=== PATIENT | female | born 1980 | race Two or more races ===

== ENCOUNTER 2016-12-25 17:09 | Emergency (ER) | payer MEDICAID, OTHER ==
[~2016-12-25] VITALS: Ht 157.5 cm; Wt 73.0 kg
[2016-12-25 17:16] VITALS: BP 138/84
[2016-12-25] MEDS ORDERED: KETOROLAC TROMETH 60MG/2ML VIAL IM ONE (21:00)
[2016-12-25] MEDS ORDERED: methylPREDNISolone SOD SUCC 125 MG/2 ML VL IM ONE (21:00)
== END 2016-12-25 22:12 | disposition home or self-care (01) ==
LOC: ER 17:26
DX: R51 Headache (principal); M54.42 Lumbago with sciatica, left side
CPT/HCPCS: 96372; 99284; J1885; J2930

== ENCOUNTER → 2022-05-24 | Emergency (ER) | payer MEDICAID ==
[~2022-05-24] VITALS: Ht 154.9 cm; Wt 68.0 kg
[~2022-05-24] MED LIST: IBUP800T27 PO
[2022-05-24 20:37] VITALS: BP 142/100
== END | disposition left against medical advice (07) ==
LOC: ER 19:16
DX: M25.511 Pain in right shoulder (principal); R51.9 Headache, unspecified; W06.XXXA Fall from bed, initial encounter; Y93.89 Activity, other specified; Y92.89 Other specified places as the place of occurrence of the external cause; Y99.8 Other external cause status
CPT/HCPCS: 73030

== ENCOUNTER 2022-12-14 22:30 | Emergency (ER) | payer MEDICAID ==
[~2022-12-14] VITALS: Ht 157.5 cm; Wt 72.7 kg
[2022-12-15] MEDS ORDERED: ACET-1158 PO (02:56)
[2022-12-15] MEDS ORDERED: AZIT250T9 PO (02:56)
[2022-12-15] MEDS ORDERED: PRED20TA2 PO (02:56)
[2022-12-15 03:30] VITALS: BP 138/74
== END 2022-12-15 03:54 | disposition home or self-care (01) ==
LOC: ER 22:30
DX: J06.9 Acute upper respiratory infection, unspecified (principal); Z20.822 Contact with and (suspected) exposure to COVID-19
CPT/HCPCS: 36415; 71045; 87426; 87804

== ENCOUNTER 2024-05-18 08:42 | Emergency (ER) | payer MEDICAID ==
[~2024-05-18] VITALS: Ht 157.5 cm; Wt 72.8 kg
[~2024-05-18 08:42] MED LIST changes: +ACET500T58 PO; +AZIT-43 PO; +IBUP-1456 PO; -IBUP800T27 PO; +PRED20TA2 PO
[2024-05-18 12:04] LABS: Basophils # (auto) 0 10 ^3/uL (0-0.2); Basophils % (auto) 0.5 % (0.0-2.0); Eosinophils # (auto) 0 10 ^3/uL (0-0.8); Eosinophils % (auto) 0.4 % (0.0-7.0); Hematocrit 41.9 % (36.0-46.0); Hemoglobin 14.6 g/dL (12.2-16.2); Lymphocytes # (auto) 1.9 10 ^3/uL (0.4-5.4); Lymphocytes % (auto) 27.1 % (10.0-50.0); Mean Corpuscular Hemoglobin 30.1 pg (28.0-32.0); Mean Corpuscular Hgb Conc. 34.8 g/dL (32.0-36.0); Mean Corpuscular Volume 86.6 fL (80.0-100.0); Monocytes # (auto) 0.4 10 ^3/uL (0-1.3); Monocytes % (auto) 5.1 % (0.0-12.0); Neutrophils # (auto) 4.8 10 ^3/uL (1.6-8.6); Neutrophils % (auto) 66.9 % (37.0-80.0); Platelet Count (auto) 297 10^3/uL (140-450); Red Blood Cells 4.84 10^6/uL (4.0-5.20); Red Cell Distribution Width 13.2 % (11.8-14.3); White Blood Cell 7.1 10^3/uL (4.4-10.8)
[2024-05-18 12:09] LABS: Chloride 106 mmol/L (98-107); Potassium 3.8 mmol/L (3.5-5.1); Sodium 139 mmol/L (136-145)
[2024-05-18 12:10] LABS: Anion Gap 7 (5-15); Calcium 9.8 mg/dL (8.7-10.4); Carbon Dioxide 26 mmol/L (20-31)
[2024-05-18 12:15] LABS: BUN/Creatinine Ratio 10.3 (10.0-20.0); Blood Urea Nitrogen 8 mg/dL (9-23); Glucose 99 mg/dL (74-106); Lipase 37 U/L (12-53)
[2024-05-18 12:22] LABS: Urine Bacteria None Seen /hpf (None Seen); Urine WBC None Seen /hpf (0 - 5)
[2024-05-18 12:50] LABS: Urine Blood Negative /uL (Negative); Urine Clarity Turbid (Clear); Urine Color Light-Yellow (Yellow); Urine Mucus FEW (None Seen); Urine Protein, UAD Negative (Negative); Urine Specific Gravity 1.023 (1.001-1.035); Urine Urobilinogen Normal (Negative)
[2024-05-18] MEDS: KETOROLAC TROMETH 60MG/2ML VIAL IM ONE (13:09)
[2024-05-18 13:10] VITALS: BP 139/84; PULSE 79; RESP 20; O2SAT 100
[2024-05-18] MEDS: HYDROcodone-ACET 5/325MG TAB PO ONE (14:06)
== END 2024-05-18 14:28 | disposition home or self-care (01) ==
LOC: ER 08:43
DX: M94.0 Chondrocostal junction syndrome [Tietze] (principal); R10.11 Right upper quadrant pain; Z88.0 Allergy status to penicillin; Z88.6 Allergy status to analgesic agent; Z79.899 Other long term (current) drug therapy; Z90.710 Acquired absence of both cervix and uterus
CPT/HCPCS: 36415; 80048; 81001; 83690; 85025; 96372; 99283; J1885

== ENCOUNTER 2024-09-21 08:50 | Inpatient (IN) | payer MEDICAID ==
[~2024-09-21] VITALS: Ht 157.5 cm; Wt 71.0 kg
--- NOTE | 2024-09-21 09:39 | DVH ---
CHEST RADIOGRAPH Indication: chest pain Technique: Single frontal view of the chest was obtained COMPARISON: XY CHEST XRAY 1 VIEW on DOS: 12/14/22 FINDINGS: Lines and Tubes: None Lungs: Mild congestion Pleura: No effusion. No pneumothorax. Cardiomediastinal contours: Unremarkable Bones: Unremarkable IMPRESSION: Mild congestion
[2024-09-21 09:44] LABS: Basophils # (auto) 0 10 ^3/uL (0-0.2); Basophils % (auto) 0.6 % (0.0-2.0); Eosinophils # (auto) 0 10 ^3/uL (0-0.8); Eosinophils % (auto) 0.6 % (0.0-7.0); Hematocrit 43.8 % (36.0-46.0); Hemoglobin 15.2 g/dL (12.2-16.2); Mean Corpuscular Hemoglobin 29.2 pg (28.0-32.0); Mean Corpuscular Hgb Conc. 34.6 g/dL (32.0-36.0); Mean Corpuscular Volume 84.2 fL (80.0-100.0); Monocytes # (auto) 0.4 10 ^3/uL (0-1.3); Monocytes % (auto) 5.7 % (0.0-12.0); Neutrophils # (auto) 4.1 10 ^3/uL (1.6-8.6); Neutrophils % (auto) 63.1 % (37.0-80.0); Nucleated Red Blood Cells % 0.1 %; Platelet Count (auto) 347 10^3/uL (140-450); Red Cell Distribution Width 12.8 % (11.8-14.3); White Blood Cell 6.5 10^3/uL (4.4-10.8)
[2024-09-21 09:46] LABS: Sodium 140 mmol/L (136-145)
[2024-09-21 09:47] LABS: Anion Gap 13 (5-15); Calcium 10.2 mg/dL (8.7-10.4); Carbon Dioxide 20 mmol/L (20-31)
[2024-09-21 09:52] LABS: BUN/Creatinine Ratio 19.8 (10.0-20.0); Blood Urea Nitrogen 20 mg/dL (9-23); Glucose 98 mg/dL (74-106)
[2024-09-21 10:01] LABS: Chloride 107 mmol/L (98-107)
[2024-09-21 10:10] LABS: Urine Bacteria FEW /hpf (None Seen); Urine Blood Negative /uL (Negative); Urine Clarity Turbid (Clear); Urine Color Light-Yellow (Yellow); Urine Protein, UAD TRACE (Negative); Urine Specific Gravity 1.026 (1.001-1.035); Urine Squamous Epithelial Cell MANY /hpf (<5); Urine Urobilinogen Normal (Negative); Urine WBC 4 /HPF (0-5)
--- NOTE | 2024-09-21 10:50 | ED.PDOC ---
History of Present Illness HPI Comments 44F with hypertension presents with 3 days of worsening high blood pressure associated with left-sided chest pain. She reports the chest pain is more of a pressure at a 6/10. It is not exertional in nature and not relieved by anything. She reports going to a clinic and they also prescribed her medication for a urinary tract infection. She reports she was supposed to be treated for H pylori however they never gave her antibiotics. She reports being compliant with all her medications. Chief Complaint: High Blood Pressure Time Seen by MD: 09:07 Primary Care Provider: UNKNOWN Allergies: Coded Allergies: Penicillins (Verified Allergy, Unknown, 05/18/24) Home Meds Active Scripts Prednisone (Prednisone) 20 Mg Tab, 20 MG PO BID for 5 Days, #10 TAB 0 Refills Prov:DYLAN BROWNLEE 12/15/22 Azithromycin (Azithromycin) 250 Mg Tab, 250 MG PO DAILY MDD 500 for 5 Days, #6 TAB 0 Refills 2 TABLETS ORALLY ON DAY ONE, THEN 1 TABLET ORALLY DAILY FOR 4 DAYS Prov:DYLAN BROWNLEE 12/15/22 Acetaminophen (Acetaminophen) 500 Mg Tab, 500 MG PO QIDP, #30 TAB 0 Refills Prov:DYLAN BROWNLEE 12/15/22 Ibuprofen (Ibuprofen) 800 Mg Tab, 1 TAB PO TID, #30 TAB Prov:GIULIA SCOTT DO 05/25/22 Information Source: Patient Mode of Arrival: Ambulatory Past Medical History PAST MEDICAL HISTORY: HTN Surgical History: Hysterectomy 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 A CLASS History: No Pertinent LINEMAN A CLASS History Family History Family History: Unknown Social History Smoker: Non-Smoker Alcohol: Denies ETOH Use Drugs: Denies Drug Use Lives In: Home All Other Systems: Reviewed and Negative Physical Exam General Appearance: Normal HEENT: Pharynx Normal Neck: Normal Inspection Respiratory: No Respiratory Distress Cardiovascular: No Edema Breast Exam: Deferred Gastrointestinal: Non Tender Genitalia: Deferred Pelvic: Deferred Rectal: Deferred Extremities: Normal range of motion Neurologic: No Motor Deficits Cerebellar Function: NOT DONE Reflexes: NOT DONE Skin: Dry, Normal Color, Warm Lymphatic: NOT DONE Was a procedure done? Was a procedure done?: No Differential Dx Considerations may include: Hypertensive emergency, ACS, viral syndrome, musculoskeletal pain, electrolyte abnormality X-Ray, Labs, Meds, VS Vital Signs Date Time Temp Pulse Resp B/P (MAP) Pulse Ox O2 Delivery O2 Flow Rate FiO2 09/21/24 09:24 92 09/21/24 09:13 98.1 102 16 140/100 (113) 100 Lab Test 09/21/24 10:14 09/21/24 09:18 09/21/24 09:16 Range/Units Troponin I High Sensitivity Pending < 3 L </=34 ng/L White Blood Count 6.5 4.4-10.8 10^3/uL Red Blood Count 5.20 4.0-5.20 10^6/uL Hemoglobin 15.2 12.2-16.2 g/dL Hematocrit 43.8 36.0-46.0 % Mean Corpuscular Volume 84.2 80.0-100.0 fL Mean Corpuscular Hemoglobin 29.2 28.0-32.0 pg Mean Corpuscular Hemoglobin Concent 34.6 32.0-36.0 g/dL Red Cell Distribution Width 12.8 11.8-14.3 % Platelet Count 347 140-450 10^3/uL Mean Platelet Volume 7.3 6.9-10.8 fL Neutrophils (%) (Auto) 63.1 37.0-80.0 % Lymphocytes (%) (Auto) 30.0 10.0-50.0 % Monocytes (%) (Auto) 5.7 0.0-12.0 % Eosinophils (%) (Auto) 0.6 0.0-7.0 % Basophils (%) (Auto) 0.6 0.0-2.0 % Neutrophils # (Auto) 4.1 1.6-8.6 10 ^3/uL Lymphocytes # (Auto) 2.0 0.4-5.4 10 ^3/uL Monocytes # (Auto) 0.4 0-1.3 10 ^3/uL Eosinophils # (Auto) 0 0-0.8 10 ^3/uL Basophils # (Auto) 0 0-0.2 10 ^3/uL Nucleated Red Blood Cells 0.1 % Sodium Level 140 136-145 mmol/L Potassium Level 4.0 3.5-5.1 mmol/L Chloride Level 107 98-107 mmol/L Carbon Dioxide Level 20 20-31 mmol/L Anion Gap 13 5-15 Blood Urea Nitrogen 20 9-23 mg/dL Creatinine 1.01 0.550-1.02 mg/dL Glomerular Filtration Rate Calc 71 >90 mL/min BUN/Creatinine Ratio 19.8 10.0-20.0 Serum Glucose 98 74-106 mg/dL Calcium Level 10.2 8.7-10.4 mg/dL Urine Color Light-yellow Yellow Urine Clarity Turbid H Clear Urine pH 7.0 5.0-9.0 Urine Specific [place] 1.026 1.001-1.035 Urine Protein Trace H Negative Urine Ketones Trace Negative Urine Blood Negative Negative /uL Urine Nitrite Negative Negative Urine Bilirubin Negative Negative Urine Urobilinogen Normal Negative mg/dL Urine Leukocyte Esterase Trace Negative /uL Urine RBC 6 0 - 4 /hpf Urine Microscopic WBC 4 0-5 /HPF Urine Squamous Epithelial Cells Many <5 /hpf Urine Bacteria Few H None Seen /hpf Urine Glucose Normal Normal mg/dL Time of 1ST Reevaluation: 10:48 Reevaluation 1ST: Unchanged Patient Education/Counseling: Diagnosis, Treatment Family Education/Counseling: No Family Present Departure 1 Departure Time of Disposition: 10:48 (Patient presented with hypertension and symptoms concerning for hypertensive emergency. Patient is receiving iv blood pressure medications requiring intensive monitoring. Data: 1. I ordered and reviewed the result of at least 3 labs including a CBC, BMP, and Urinalysis. 2. I independently interpreted the following tests: CT Brain: Which appears benign. EKG which is Normal Sinus RhythmRisk:This patient has a high risk of morbidity due to further diagnostic testing or treatment and may suffer from an acute c ardiac disorder. Workup reveals hypertensive emergency and patient should be admitted for further workup. and possible expert consultation. ) Impression: Primary Impression: Hypertensive emergency without congestive heart failure Additional Impression: Acute chest pain Disposition: ADMITTED INPATIENT Admit to: Med Surg Condition: Serious Critical Care Note Critical Care Time?: Yes Critical care comment: Hypertensive emergency Authorized and Performed by: Hitesh Clement MD Total critical care time: Approximately 36 minutes Due to a high probability of clinically significant, life threatening deterioration, the patient required my highest level of preparedness to intervene emergently and I personally spent this critical care time directly and personally managing the patient. This critical care time included obtaining a history; examining the patient; pulse oximetry; ordering and review of studies; arranging urgent treatment with development of a management plan; evaluation of patient's response to treatment; frequent reassessment; and, discussions with other providers. This critical care time was performed to assess and manage the high probability of imminent, life-threatening deterioration that could result in multi-organ failure. It was exclusive of separately billable procedures and treating other patients and teaching time. Please see my other sections and the rest of the note for further information on patient assessment and treatment. Stability Stability form required: No Heart Score Heart Score: Heart Score Response (Comments) Value History Moderate Suspicious 1 EKG Repolarization Disturb 1 Age <45 0 Risk Factors 1 or 2 risk factors 1 Troponin Normal limit 0 Total 3 HITESH CLEMENT MD Sep 21, 2024 10:50
[2024-09-21] MEDS: hydrALAZINE HCL 20 MG/ML VL IV ONE (12:31)
[2024-09-21 12:33] VITALS: PULSE 100; RESP 18; O2SAT 100
[2024-09-21] MEDS: KETOROLAC TROMETH 30 MG/ML 1ML VIAL IV ONE (13:23)
--- NOTE | 2024-09-21 15:36 | ECG ---
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
[2024-09-22] MEDS ORDERED: MORPHINE SULFATE INJ 2 MG/ml SYRG IV PRN (00:30)
[2024-09-22] MEDS ORDERED: hydrALAZINE HCL 20 MG/ML VL IV PRN (00:30)
[2024-09-22] MEDS ORDERED: ONDANSETRON HCL 4 MG/2 ML VIAL IV PRN (00:30)
[2024-09-22] MEDS ORDERED: NITROGLYCERIN 0.4 MG SL TAB SL PRN (00:30)
[2024-09-22] MEDS: amLODIPine BESYLATE 5 MG TAB PO SCH (00:36)
[2024-09-22] MEDS: ACETAMINOPHEN 325 MG TAB PO PRN (00:37)
[2024-09-22] MEDS: cefTRIAXone 1GM/50ML D5W 50 ML IV ONE (00:42)
--- NOTE | 2024-09-22 00:42 | DVHHP2 ---
Admitting Diagnosis: Chest pain, Hypertension History of Present Illness History Source: Patient Exam Limitations: No limitations HPI Mrs. Brittany Mark is a 44 yo female with no reported medical history who presents with 3 days of worsening high blood pressure associated with left- sided chest pain radiating to her left shoulder blade. Patient reports the chest pain is more of a pressure at a 6/10. It is not exertional in nature and not relieved by anything. She reports going to a clinic and they also prescribed her medication for a urinary tract infection. Patient was told to go to the clinic 3 days in a row to monitor her blood pressure. Patient reports she went to 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 Patient denies headaches, dizziness, nausea, vomiting, fevers, chills, dysuria, hematuria, abdominal pain, diarrhea, constipation. Patient admitted for further evaluation. Home Meds Active Scripts Prednisone (Prednisone) 20 Mg Tab, 20 MG PO BID for 5 Days, #10 TAB 0 Refills Prov:DYLAN BROWNLEE 12/15/22 Azithromycin (Azithromycin) 250 Mg Tab, 250 MG PO DAILY MDD 500 for 5 Days, #6 TAB 0 Refills 2 TABLETS ORALLY ON DAY ONE, THEN 1 TABLET ORALLY DAILY FOR 4 DAYS Prov:DYLAN BROWNLEE 12/15/22 Acetaminophen (Acetaminophen) 500 Mg Tab, 500 MG PO QIDP, #30 TAB 0 Refills Prov:DYLAN BROWNLEE 12/15/22 Ibuprofen (Ibuprofen) 800 Mg Tab, 1 TAB PO TID, #30 TAB Prov:GIULIA SCOTT DO 05/25/22 Reported Medications Sulfamethoxazole-Trimethoprim (Bactrim) 1 Tab Tab, 1 TAB PO Q12HR, MG 09/22/24 Past Medical History Cardiac: No pertinent Hx Pulmonary: No pertinent Hx Central Nervous System: No pertinent Hx GI: No pertinent Hx Hemotology/Oncology: No pertinent Hx Hepatobiliary: No pertinent Hx Psychiatric: No pertinent Hx Musculoskeletal: No pertinent Hx Rheumotologic: No pertinent Hx Infectious Disease: No peritnent Hx ENT: No pertinent Hx Renal/: No pertinent Hx Endocrine: No pertinent Hx Dermatology: No pertinent Hx Review of Systems Comments elevated blood pressure Constitutional: No symptom reported Ears, Nose, & Throat: No symptom reported Eyes: No symptom reported Pulmonary/Respiratory: No symptom reported Cardiovascular: Chest Pain (chest pressure radiating to left arm and left shoulder blade.) Gastrointestinal: No symptom reported Genitourinary: No symptom reported Musculoskeletal: No symptom reported Skin: No symptom reported Psychiatric: No symptom reported Endocrine: No symptom reported Hemotologic/Lymphatic: No symptom reported H&P Exam Vital Signs Vital Signs Date Time Temp Pulse Resp B/P (MAP) Pulse Ox O2 Delivery O2 Flow Rate FiO2 09/22/24 00:08 97.6 77 16 137/94 (108) 100 97.6 09/21/24 12:33 Room Air* 0 21 General Appeara: Well developed, Well nourished, Normal Appearance Head Exam: Normal inspection Neck Exam: Normal inspection, Non-tender, Normal alignment Eye Exam: bilateral eye Normal inspection, bilateral eye PERRL, bilateral eye EOMI Ear Exam: bilateral ear Auricle normal Nasal Exam: Normal inspection Mouth: Normal Inspection Pulmonary/Respiratory: Normal inspection, Normal breath sounds, Chest non- tender, Lungs clear Cardiovascular/Chest: Normal inspection, Regular rate, Normal Rhythm Peripheral Pulses: 2+ dorsalis pedis (R), 2+ dorsalis pedis (L), 2+ Radial (R), 2+ Radial (L) Abdominal Exam: Normal bowel sounds, Soft, No tenderness Rectal Exam: Deferred Back Exam: Normal inspection Pelvic Exam: Not done Neuro/Mental St: Alert, Oriented Appearance: Appropriate appearance, Appropriate insight Eye contact/ Speech: Cooperative, Good eye contact, Normal speech Thoughts/Psych: Normal thought pattern Skin Exam: Normal inspection, Normal color, Warm/dry Labs/Xrays Labs Test 09/21/24 10:14 09/21/24 09:18 09/21/24 09:16 Range/Units Troponin I High Sensitivity < 3 L </=34 ng/L Beta HCG, Quantitative 0.2 L 1.5-4.2 mIU/mL White Blood Count 6.5 4.4-10.8 10^3/uL Red Blood Count 5.20 4.0-5.20 10^6/uL Hemoglobin 15.2 12.2-16.2 g/dL Hematocrit 43.8 36.0-46.0 % Mean Corpuscular Volume 84.2 80.0-100.0 fL Mean Corpuscular Hemoglobin 29.2 28.0-32.0 pg Mean Corpuscular Hemoglobin Concent 34.6 32.0-36.0 g/dL Red Cell Distribution Width 12.8 11.8-14.3 % Platelet Count 347 140-450 10^3/uL Mean Platelet Volume 7.3 6.9-10.8 fL Neutrophils (%) (Auto) 63.1 37.0-80.0 % Lymphocytes (%) (Auto) 30.0 10.0-50.0 % Monocytes (%) (Auto) 5.7 0.0-12.0 % Eosinophils (%) (Auto) 0.6 0.0-7.0 % Basophils (%) (Auto) 0.6 0.0-2.0 % Neutrophils # (Auto) 4.1 1.6-8.6 10 ^3/uL Lymphocytes # (Auto) 2.0 0.4-5.4 10 ^3/uL Monocytes # (Auto) 0.4 0-1.3 10 ^3/uL Eosinophils # (Auto) 0 0-0.8 10 ^3/uL Basophils # (Auto) 0 0-0.2 10 ^3/uL Nucleated Red Blood Cells 0.1 % Sodium Level 140 136-145 mmol/L Potassium Level 4.0 3.5-5.1 mmol/L Chloride Level 107 98-107 mmol/L Carbon Dioxide Level 20 20-31 mmol/L Anion Gap 13 5-15 Blood Urea Nitrogen 20 9-23 mg/dL Creatinine 1.01 0.550-1.02 mg/dL Glomerular Filtration Rate Calc 71 >90 mL/min BUN/Creatinine Ratio 19.8 10.0-20.0 Serum Glucose 98 74-106 mg/dL Calcium Level 10.2 8.7-10.4 mg/dL Urine Color Light-yellow Yellow Urine Clarity Turbid H Clear Urine pH 7.0 5.0-9.0 Urine Specific [place] 1.026 1.001-1.035 Urine Protein Trace H Negative Urine Ketones Trace Negative Urine Blood Negative Negative /uL Urine Nitrite Negative Negative Urine Bilirubin Negative Negative Urine Urobilinogen Normal Negative mg/dL Urine Leukocyte Esterase Trace Negative /uL Urine RBC 6 0 - 4 /hpf Urine Microscopic WBC 4 0-5 /HPF Urine Squamous Epithelial Cells Many <5 /hpf Urine Bacteria Few H None Seen /hpf Urine Glucose Normal Normal mg/dL Assessment/Plan Problem List: (1) Acute chest pain (2) Hypertension Plan This is a 44 yo female with no known past medical history who presents with chest pain, and elevated blood pressure x 3 days worsening yesterday. 1. Chest pain rule out ACS 2. Hypertension Plan Admit telemetry Cardiology consultation, serial troponin levels, ASA, Statin GI ppx Pepcid Antihypertensive for optimal blood pressure management Analgesic as needed Discussed all above with patient who verbalizes agreement and understanding of care plan. All questions were answered. Discussed assessment and care plan with supervising MD. Patient's chart is reviewed seen evaluated. Patient is seen evaluated and admit adrián by nurse practitioner this morning. I agree with her evaluation, documentation, assessment and care plan as outlined. Plan discussed with: Patient, Other Code Visit Code Visit Total Time (mins): 45 GEETHA HOWELL Sep 22, 2024 00:42 JIMMY REYNOSO MD Sep 22, 2024 15:07
[2024-09-22 04:26] LABS: HDL Cholesterol 42 mg/dL (40-59)
[2024-09-22 04:40] LABS: Cholesterol 223 mg/dL (< 200); LDL Cholesterol 149 mg/dL (< 100); Triglycerides 309 mg/dL (< 150)
[2024-09-22 08:00] VITALS: BP 117/72; PULSE 75; RESP 18; TEMP 97.7; O2SAT 100
[2024-09-22 09:00] VITALS: BP 129/63; PULSE 89; RESP 28; TEMP 97.7; O2SAT 100
[2024-09-22] MEDS: ASPirin 81 mg TAB PO SCH (09:10)
[2024-09-22] MEDS: FAMOTIDINE 20 MG TAB PO SCH (09:10)
[2024-09-22] MEDS ORDERED: SULF400T11 PO (09:20)
[2024-09-22 10:44] VITALS: BP 130/78; PULSE 80; O2SAT 100
[2024-09-22] MEDS: HYDROcodone-ACET 5/325MG TAB PO PRN (10:47)
--- NOTE | 2024-09-22 11:05 | DVHINCON2 ---
Date Seen: Sep 22, 2024 Referring Physician ESDRAS Romero Reason for Consultation Chest pain History of Present Illness This is a 44-year-old female patient who presents to the emergency room with chief complaint of chest pain. The patient reports that the chest pain began approximately two days ago while she was at work. 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 She describes it as unprovoked, intermittent, sharp in nature, left-sided with radiation to her left upper back. Associated symptoms include dizziness and shortness of breath. Upon emergency room arrival, the patient was given Toradol for pain and reports relief of symptoms. Initial twelve lead electrocardiogram reveals normal sinus rhythm without any significant ST segment changes. Serial troponin levels have been negative. Significant past medical history includes hypertension, dyslipidemia, urinary tract infections, and migraines. Past Medical History Past medical history reviewed. No other significant than mentioned above. Past Surgical History Denies Family History Family history reviewed. Social History Denies the use of tobacco, alcohol or illicit drugs. Allergies: Coded Allergies: Penicillins (Verified Allergy, Unknown, 05/18/24) Home Meds Active Scripts Prednisone (Prednisone) 20 Mg Tab, 20 MG PO BID for 5 Days, #10 TAB 0 Refills Prov:DYLAN BROWNLEE 12/15/22 Azithromycin (Azithromycin) 250 Mg Tab, 250 MG PO DAILY MDD 500 for 5 Days, #6 TAB 0 Refills 2 TABLETS ORALLY ON DAY ONE, THEN 1 TABLET ORALLY DAILY FOR 4 DAYS Prov:DYLAN BROWNLEE 12/15/22 Acetaminophen (Acetaminophen) 500 Mg Tab, 500 MG PO QIDP, #30 TAB 0 Refills Prov:DYLAN BROWNLEE 12/15/22 Ibuprofen (Ibuprofen) 800 Mg Tab, 1 TAB PO TID, #30 TAB Prov:GIULIA SCOTT DO 05/25/22 Reported Medications Sulfamethoxazole-Trimethoprim (Bactrim) 1 Tab Tab, 1 TAB PO Q12HR, MG 09/22/24 Home Meds Home medications reviewed. Current Medications Current Medications Medications (Trade) Dose Ordered Sig/Keshav Route PRN Reason Start Time Stop Time Status Last Admin Nitroglycerin (Ntrostat Sublingual) 0.4 mg Q5MINP PRN SL FOR CHEST PAIN 09/22/24 00:30 Morphine Sulfate 2 mg Q30M PRN IV FOR CHEST PAIN 09/22/24 00:30 Amlodipine Besylate (Norvasc Tablet) 5 mg DAILY PO 09/22/24 00:30 09/22/24 09:10 Hydralazine HCl (Apresoline Injection) 10 mg Q6HPRN PRN IV SBP>160 09/22/24 00:30 Aspirin 81 mg DAILY PO 09/22/24 10:00 09/22/24 09:10 Famotidine (Pepcid Tablet) 20 mg BID PO 09/22/24 10:00 09/22/24 09:10 Acetaminophen (Tylenol Tablet) 650 mg Q6HPRN PRN PO PAIN SCALE 1-3 OR TEMP>100.4 09/22/24 00:30 09/22/24 00:37 Acetaminophen/ Hydrocodone Bitart ([place] 5/325MG Tab) 1 tab Q6HPRN PRN PO PAIN SCALE 1 THRU 6 09/22/24 00:30 09/22/24 10:47 Ondansetron HCl (Zofran) 4 mg Q6HPRN PRN IV NAUSEA / VOMITING 09/22/24 00:30 Review of Systems Constitutional: No symptom reported Ears, Nose, & Throat: No symptom reported Eyes: No symptom reported Neurological: No symptoms reported Pulmonary/Respiratory: No symptoms reported Cardiovascular: Chest pain Gastrointestinal: No symptom reported Genitourinary: No symptom reported Musculoskeletal: No symptom reported Skin: No symptom reported Psychiatric: No symptom reported Endocrine: No symptom reported Hematologic/Lymphatic: No symptom reported Vital Signs Vital Signs Date Time Temp Pulse Resp B/P (MAP) Pulse Ox O2 Delivery O2 Flow Rate FiO2 09/22/24 09:10 133/50 09/22/24 05:12 97.4 83 18 100 97.4 09/21/24 12:33 Room Air* 0 21 Physical Exam General Appearance: Cooperative. Well-developed. Well-nourished. No acute distress. Pulmonary/Respiratory: Clear, bilateral breaths sounds. Cardiovascular/Chest: Regular rate and rhythm. Peripheral Pulses: 2+ Radial (R). 2+ Radial (L). 2+ Pedal (R). 2+ Pedal (L) Abdominal Exam: Normal bowel sounds. Ankle Exam: Negative ankle edema Lower extremities: Negative lower extremity edema Neuro/Mental Status: A/OX4, coherent. Thoughts/Psych: Normal thought pattern. Appropriate mood and affect. Good judgment and insight. Appearance: No acute distress. Skin Exam: Normal inspection. Normal color. Warm and dry. Labs/Diagnostic Data Labs Test 09/22/24 03:26 09/22/24 00:40 09/21/24 10:14 09/21/24 09:18 Range/Units Troponin I High Sensitivity < 3 L </=34 ng/L Triglycerides Level 309 H < 150 mg/dL Cholesterol Level 223 H < 200 mg/dL LDL Cholesterol 149 H < 100 mg/dL HDL Cholesterol 42 40-59 mg/dL B-Type Natriuretic Peptide 8.75 0-100 pg/mL Beta HCG, Quantitative 0.2 L 1.5-4.2 mIU/mL White Blood Count 6.5 4.4-10.8 10^3/uL Red Blood Count 5.20 4.0-5.20 10^6/uL Hemoglobin 15.2 12.2-16.2 g/dL Hematocrit 43.8 36.0-46.0 % Mean Corpuscular Volume 84.2 80.0-100.0 fL Mean Corpuscular Hemoglobin 29.2 28.0-32.0 pg Mean Corpuscular Hemoglobin Concent 34.6 32.0-36.0 g/dL Red Cell Distribution Width 12.8 11.8-14.3 % Platelet Count 347 140-450 10^3/uL Mean Platelet Volume 7.3 6.9-10.8 fL Neutrophils (%) (Auto) 63.1 37.0-80.0 % Lymphocytes (%) (Auto) 30.0 10.0-50.0 % Monocytes (%) (Auto) 5.7 0.0-12.0 % Eosinophils (%) (Auto) 0.6 0.0-7.0 % Basophils (%) (Auto) 0.6 0.0-2.0 % Neutrophils # (Auto) 4.1 1.6-8.6 10 ^3/uL Lymphocytes # (Auto) 2.0 0.4-5.4 10 ^3/uL Monocytes # (Auto) 0.4 0-1.3 10 ^3/uL Eosinophils # (Auto) 0 0-0.8 10 ^3/uL Basophils # (Auto) 0 0-0.2 10 ^3/uL Nucleated Red Blood Cells 0.1 % Sodium Level 140 136-145 mmol/L Potassium Level 4.0 3.5-5.1 mmol/L Chloride Level 107 98-107 mmol/L Carbon Dioxide Level 20 20-31 mmol/L Anion Gap 13 5-15 Blood Urea Nitrogen 20 9-23 mg/dL Creatinine 1.01 0.550-1.02 mg/dL Glomerular Filtration Rate Calc 71 >90 mL/min BUN/Creatinine Ratio 19.8 10.0-20.0 Serum Glucose 98 74-106 mg/dL Calcium Level 10.2 8.7-10.4 mg/dL Test 09/21/24 09:16 Range/Units Urine Color Light-yellow Yellow Urine Clarity Turbid H Clear Urine pH 7.0 5.0-9.0 Urine Specific [place] 1.026 1.001-1.035 Urine Protein Trace H Negative Urine Ketones Trace Negative Urine Blood Negative Negative /uL Urine Nitrite Negative Negative Urine Bilirubin Negative Negative Urine Urobilinogen Normal Negative mg/dL Urine Leukocyte Esterase Trace Negative /uL Urine RBC 6 0 - 4 /hpf Urine Microscopic WBC 4 0-5 /HPF Urine Squamous Epithelial Cells Many <5 /hpf Urine Bacteria Few H None Seen /hpf Urine Glucose Normal Normal mg/dL Assessment Chest pain, likely noncardiac Hypertension Dyslipidemia Urinary tract infection Migraines Plan/Recommendation We will continue with following plan/recommendations (Dr. Kingsley): Case discussed and reviewed with . HEART score: 1 point (low score). Given the patient's clinical presentation, negative troponin level, and unremarkable twelve lead electrocardiogram, doubt ACS. We will recommend to continue with blood pressure control and lipid-lowering agent. In the setting of an unremarkable echocardiogram, there is no further inpatient cardiac workup indicated at this time. The patient may follow up with Cardiology in the outpatient setting for further workup within 1-2 weeks post discharge. Thank you for allowing us to care for this patient. Please call with any questions or concerns. Critical care time spent: 40 minutes This medical document was created using an electronic medical record system with voice recognition software and computerized dictation system. Although this document has been carefully reviewed, there might still be some phonetic and typographical errors. Occasional wrong-word or ``sound-alike substitutions may have occurred due to the inherent limitations of voice recognition software. These areas are purely typographical due to imperfections of the software programs and do not reflect any compromise in the patient's medical care. Please read the chart carefully and recognize, using context, where these substitutions have occurred. Plan discussed with: Patient NYHA Physical activity limitations: NA Date of Service: Sep 22, 2024 Billing Provider: NATHALIA MOFFETT Cardiology Common Codes: 34775-[id number] INP/OBS CARE (High) Cardiology Consultation Codes: [id number] CONSULT <45MIN NATHALIA MOFFETT Sep 22, 2024 11:05
[2024-09-22 12:50] VITALS: BP 119/68; PULSE 73; RESP 20; TEMP 97.3; O2SAT 100
[2024-09-22 17:00] VITALS: BP 117/72; PULSE 75; RESP 18; TEMP 97.7; O2SAT 100
[2024-09-22] MEDS: ATORVASTATIN 20 MG TAB PO SCH (21:55)
[2024-09-23 11:00] VITALS: BP 116/87; PULSE 80; RESP 21; TEMP 97.9; O2SAT 100
[2024-09-23] MEDS ORDERED: IBUP-1454 PO (13:49)
[2024-09-23] MEDS ORDERED: ATOR20TA50 PO (13:49)
[2024-09-23] MEDS ORDERED: PANT40T PO (13:49)
[2024-09-23] MEDS ORDERED: AMLO1TAB22 PO (13:49)
--- NOTE | 2024-09-23 13:51 | DVHDS2 ---
Discharge Summary Date of Admission Sep 22, 2024 at 00:24 Date of Discharge: Sep 23, 2024 Labs/Diagnostic Data: Laboratory Results Test 09/22/24 22:12 09/22/24 03:26 09/22/24 00:40 09/21/24 10:14 Troponin I High Sensitivity < 3 ng/L (</=34) Triglycerides Level 309 mg/dL (< 150) Cholesterol Level 223 mg/dL (< 200) LDL Cholesterol 149 mg/dL (< 100) HDL Cholesterol 42 mg/dL (40-59) B-Type Natriuretic Peptide 8.75 pg/mL (0-100) Beta HCG, Quantitative 0.2 mIU/mL (1.5-4.2) Test 09/21/24 09:18 09/21/24 09:16 White Blood Count 6.5 10^3/uL (4.4-10.8) Red Blood Count 5.20 10^6/uL (4.0-5.20) Hemoglobin 15.2 g/dL (12.2-16.2) Hematocrit 43.8 % (36.0-46.0) Mean Corpuscular Volume 84.2 fL (80.0-100.0) Mean Corpuscular Hemoglobin 29.2 pg (28.0-32.0) Mean Corpuscular Hemoglobin Concent 34.6 g/dL (32.0-36.0) Red Cell Distribution Width 12.8 % (11.8-14.3) Platelet Count 347 10^3/uL (140-450) Mean Platelet Volume 7.3 fL (6.9-10.8) Neutrophils (%) (Auto) 63.1 % (37.0-80.0) Lymphocytes (%) (Auto) 30.0 % (10.0-50.0) Monocytes (%) (Auto) 5.7 % (0.0-12.0) Eosinophils (%) (Auto) 0.6 % (0.0-7.0) Basophils (%) (Auto) 0.6 % (0.0-2.0) Neutrophils # (Auto) 4.1 10 ^3/uL (1.6-8.6) Lymphocytes # (Auto) 2.0 10 ^3/uL (0.4-5.4) Monocytes # (Auto) 0.4 10 ^3/uL (0-1.3) Eosinophils # (Auto) 0 10 ^3/uL (0-0.8) Basophils # (Auto) 0 10 ^3/uL (0-0.2) Nucleated Red Blood Cells 0.1 % Sodium Level 140 mmol/L (136-145) Potassium Level 4.0 mmol/L (3.5-5.1) Chloride Level 107 mmol/L (98-107) Carbon Dioxide Level 20 mmol/L (20-31) Anion Gap 13 (5-15) Blood Urea Nitrogen 20 mg/dL (9-23) Creatinine 1.01 mg/dL (0.550-1.02) Glomerular Filtration Rate Calc 71 mL/min (>90) BUN/Creatinine Ratio 19.8 (10.0-20.0) Serum Glucose 98 mg/dL (74-106) Calcium Level 10.2 mg/dL (8.7-10.4) Urine Color Light-yellow (Yellow) Urine Clarity Turbid (Clear) Urine pH 7.0 (5.0-9.0) Urine Specific [place] 1.026 (1.001-1.035) Urine Protein Trace (Negative) Urine Ketones Trace (Negative) Urine Blood Negative /uL (Negative) Urine Nitrite Negative (Negative) Urine Bilirubin Negative (Negative) Urine Urobilinogen Normal mg/dL (Negative) Urine Leukocyte Esterase Trace /uL (Negative) Urine RBC 6 /hpf (0 - 4) Urine Microscopic WBC 4 /HPF (0-5) Urine Squamous Epithelial Cells Many /hpf (<5) Urine Bacteria Few /hpf (None Seen) Urine Glucose Normal mg/dL (Normal) Other Laboratory Tests 09/21/24 09:18 Brief Hx & Hospital Course: This is a 44-year-old female patient who presents to the emergency room with chief complaint of chest pain. The patient reports that the chest pain began approximately two days ago while she was at work. 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 She describes it as unprovoked, intermittent, sharp in nature, left-sided with radiation to her left upper back. Associated symptoms include dizziness and shortness of breath. Upon emergency room arrival, the patient was given Toradol for pain and reports relief of symptoms. Initial twelve lead electrocardiogram reveals normal sinus rhythm without any significant ST segment changes. Serial troponin levels have been negative. Significant past medical history includes hypertension, dyslipidemia, urinary tract infections, and migraines. She is admitted and ruled out for any acute coronary ischemia with a and agree cardiac enzymes and normal EKG. Patient remained chest pain-free. She was started on blood pressure medication and high cholesterol medicine. She is advised to control her blood pressure and cholesterol under good control. Her pain is atypical for cardiac disease and felt possibly related to guarded therefore she prescribed proton pump inhibitor. Patient's otherwise clinically feeling better. Not having any other issues. She is evaluated by electrical prospecting supervisor and felt stable to be discharged home. She was however advised to follow up with the electrical prospecting supervisor outpatient and follow up for final details of her echocardiogram she has done. At the time of her discharge the report is unavailable. Patient verbalized understanding of this, verbalized understanding over hospital diagnosis, treatment she received, discharge medications, agree with the discharge follow-up plan of care as mentioned. Consults/Reason for consult Assessment Chest pain, likely noncardiac Hypertension Dyslipidemia Urinary tract infection Migraines Plan/Recommendation We will continue with following plan/recommendations (Dr. Kingsley): Case discussed and reviewed with . HEART score: 1 point (low score). Given the patient's clinical presentation, negative troponin level, and unremarkable twelve lead electrocardiogram, doubt ACS. We will recommend to continue with blood pressure control and lipid-lowering agent. In the setting of an unremarkable echocardiogram, there is no further inpatient cardiac workup indicated at this time. The patient may follow up with Cardiology in the outpatient setting for further workup within 1-2 weeks post discharge. Thank you for allowing us to care for this patient. Please call with any questions or concerns. Critical care time spent: 40 minutes This medical document was created using an electronic medical record system with voice recognition software and computerized dictation system. Although this document has been carefully reviewed, there might still be some phonetic and typographical errors. Occasional wrong-word or ``sound-alike substitutions may have occurred due to the inherent limitations of voice recognition software. These areas are purely typographical due to imperfections of the software programs and do not reflect any compromise in the patient's medical care. Please read the chart carefully and recognize, using context, where these substitutions have occurred. Plan discussed with: Patient NYHA 2 Physical activity limitations: NA Date of Service: Sep 22, 2024 Billing Provider: NATHALIA MOFFETT Cardiology Common Codes: 69243-[id number] INP/OBS CARE (High) Cardiology Consultation Codes: 02150-[id number] CONSULT <45MIN NATHALIA MOFFETT Sep 22, 2024 11:05 Condition at Discharge: Stable Final Diagnosis/Problems List Noncardiac chest pain Discharge Disposition: Home Discharge Instruct/Medications Diet: Consistent carbohydrate, Cardiac 2g Na,low cholest Activity: No Restrictions, As Tolerated Follow Up/Referral: Dr. Kingsley electrical prospecting supervisor after two weeks for further evaluation and management of your symptoms Medications: As prescribed per discharge medication list New Medications: Amlodipine Besylate (Amlodipine Besylate) 5 Mg Tab 1 TAB PO DAILY, #90 TAB 1 Refill Atorvastatin Calcium (Atorvastatin Calcium) 20 Mg Tab 1 TAB PO DAILY, #90 TAB Ibuprofen (Ibuprofen) 600 Mg Tab 1 TAB PO TID PRN, #20 TAB For headache and neck discomfort as needed Pantoprazole Sodium Sesquihydr (Pantoprazole Sodium) 40 Mg Tab 40 MG PO DAILY, #20 TAB Discontinued Medications: Azithromycin (Azithromycin) 250 Mg Tab 250 MG PO DAILY MDD 500 for 5 Days, #6 TAB 0 Refills 2 TABLETS ORALLY ON DAY ONE, THEN 1 TABLET ORALLY DAILY FOR 4 DAYS Prednisone (Prednisone) 20 Mg Tab 20 MG PO BID for 5 Days, #10 TAB 0 Refills Sulfamethoxazole-Trimethoprim (Bactrim) 1 Tab Tab 1 TAB PO Q12HR, MG Discharge Statement: "Patient was advised to return to the ER or call 911 if any headaches, dizziness, shortness of breath, chest pain, abdominal pain, bleeding, fevers, or worsening of medical condition. Patient was counseled about treatment plan, medications, possible side effects, patientverbalized understanding. All questions were answered to the best of my ability. This discharge took greater then 30 minutes in planning, reviewing documentation, counseling the patient, and discussing with other team members." ASSESSMENT ASSESSMENT Assessment Noncardiac chest pain JIMMY REYNOSO MD Sep 23, 2024 13:51
[2024-09-23 18:48] VITALS: BP 115/66; TEMP 36.6
--- NOTE | 2024-09-25 16:03 | DVHSR ---
APPROVED REPORT EXAM: Two-dimensional and M-mode echocardiogram with Doppler and color Doppler. Blood Pressure: 112/71 mmHg INDICATION evaluate cardiac function RISK FACTORS Height: 5'2, Weight: 156 DIMENSIONS LVDd3.4 (3.8-5.7cm)LA (2D)3.3 (1.9-4.0cm)Aortic Root2.9 (2.0-3.7cm) LVDs2.3 (2.5-4.0cm)LA (MM) (1.9-4.0cm)Aortic Cusp Exc1.5 (1.5-2.0cm) EF (%) 60.0 (55-70%)Rt. Atrium2.7 (1.9-4.0cm)Asc. Aorta cm IVSd1.0 (0.7-1.1cm)RV (D)2.9 (1.8-2.4cm) PWd0.8 (0.7-1.1cm) Mitral Valve MitralMitral Stenosis E wave0.55m/sMV Mean GR.mmHg A wave0.71m/sMV Peak GR.mmHg E/A ratio0.82D MVAcm2 DECEL [id number] 1/2 Timems Aortic Valve Aortic ValveAortic Stenosis V11.21m/Tylor Mean GR.4mmHg V21.27m/Tylor Peak GR.6mmHg LVOT Diameter1.8 (1.8-2.4cm)Doppler AVA2.42cm2 Pulmonic Valve V20.83m/s Other Information Technically limited study due to pt had breast implants Conclusion Sinus rhythm Normal chamber sizes. Normal valves Normal EF at 65% with normal RV function Normal doppler No masses or vegetations. --
== END 2024-09-23 19:11 | disposition home or self-care (01) | DRG 203 ==
LOC: ER 08:50 → TELE 09-22 00:24
PROVIDERS: ADMIT Nurse Practitioner Family; ATTEND Nurse Practitioner Family
DX: M94.0 Chondrocostal junction syndrome [Tietze] (principal); E78.00 Pure hypercholesterolemia, unspecified; N39.0 Urinary tract infection, site not specified; E78.5 Hyperlipidemia, unspecified; G43.909 Migraine, unspecified, not intractable, without status migrainosus; I16.1 Hypertensive emergency; I10 Essential (primary) hypertension; Z88.0 Allergy status to penicillin; Z79.899 Other long term (current) drug therapy; Z90.710 Acquired absence of both cervix and uterus
CPT/HCPCS: 36415; 71045; 80048; 80061; 81001; 83880; 84484; 84702; 85025; 93005; 93306; 96374; 99291; G0378; J1885

== ENCOUNTER 2025-03-20 18:23 | Emergency (ER) | payer MEDICAID ==
[~2025-03-20] VITALS: Ht 157.5 cm; Wt 72.0 kg
[~2025-03-20 18:23] MED LIST changes: -ACET500T58 PO; +AMLO1TAB22 PO; +ATOR20TA50 PO; -AZIT-43 PO; +IBUP-1454 PO; -IBUP-1456 PO; +PANT40T PO; -PRED20TA2 PO
[2025-03-20 18:25] VITALS: BP 152/86; PULSE 98; RESP 18; TEMP 98.2; O2SAT 98
--- NOTE | 2025-03-20 19:15 | DVH ---
CLINICAL INDICATION: neck pain TECHNIQUE: 3 radiographic views of the cervical spine were obtained. Comparison: None FINDINGS/IMPRESSION: Normal bony alignment There are no compressed vertebra Prevertebral soft tissues are within normal limits. There is no spondylolisthesis No significant osteoarthritis.
[2025-03-20] MEDS ORDERED: TIZA-142 PO (20:02)
[2025-03-20] MEDS ORDERED: METH4PAK PO (20:02)
--- NOTE | 2025-03-20 20:02 | ED.PDOC ---
Back pain HPI HPI Comments 44-year-old female patient presents to the ED chief complaint neck pain. Patient describes pain as stiffness radiating to bilateral shoulders denies any known injury rates pain 8/10 on pain scale she states she woke up this morning with the pain. Reports no numbness or weakness or known trauma. Denies fevers, chills, nausea, vomiting, chest pain, shortness breath or difficulty breathing. Chief Complaint: Neck Pain Time Seen by MD: 18:42 Primary Care Provider: UNKNOWN Reviewed Notes: Nurses Notes, Medications, Allergies Allergies: Coded Allergies: Bismuth Subsalicylate (Verified Allergy, Unknown, 03/20/25) Metronidazole (Verified Allergy, Unknown, 03/20/25) Pantoprazole (Verified Allergy, Unknown, 03/20/25) Penicillins (Verified Allergy, Unknown, 05/18/24) Tetracycline (Verified Allergy, Unknown, 03/20/25) Home Meds Active Scripts Ibuprofen (Ibuprofen) 600 Mg Tab, 1 TAB PO TID PRN, #20 TAB For headache and neck discomfort as needed Prov:JIMMY REYNOSO MD 09/23/24 Pantoprazole Sodium Sesquihydr (Pantoprazole Sodium) 40 Mg Tab, 40 MG PO DAILY, #20 TAB Prov:JIMMY REYNOSO MD 09/23/24 Atorvastatin Calcium (ATORVASTATIN CALCIUM) 20 Mg Tab, 1 TAB PO DAILY, #90 TAB Prov:JIMMY REYNOSO MD 09/23/24 Amlodipine Besylate (Amlodipine Besylate) 5 Mg Tab, 1 TAB PO DAILY, #90 TAB 1 Refill Prov:JIMMY REYNOSO MD 09/23/24 Information Source: Patient Mode of Arrival: Ambulatory Past Medical History PAST MEDICAL HISTORY: HTN Surgical History: Hysterectomy RESEARCH INVESTIGATOR History: No Pertinent RESEARCH INVESTIGATOR History Family History Family History: Unknown Social History Smoker: Non-Smoker Alcohol: Denies ETOH Use Drugs: Denies Drug Use Lives In: Home Constitutional: denies: chills, diaphoresis, fatigue, fever, malaise, sweats, weakness, others EENTM: denies: blurred vision, double vision, ear bleeding, ear discharge, ear drainage, ear pain, ear ringing, eye pain, eye redness, hearing loss, mouth pain, mouth swelling, nasal discharge, nose bleeding, nose congestion, nose pain, photophobia, tearing, throat pain, throat swelling, voice changes, others Respiratory: denies: cough, hemoptysis, orthopnea, SOB at rest, shortness of breath, SOB with excertion, stridor, wheezing, others Cardiovascular: denies: chest pain, dizzy spells, diaphoresis, Dyspnea on exertion, edema, irregular heart beat, left arm pain, lightheadedness, palpitations, PND, syncope, others Gastrointestinal: denies: abdomen distended, abdominal pain, blood streaked bowels, constipated, diarrhea, dysphagia, difficulty swallowing, hematemesis, melena, nausea, poor appetite, poor fluid intake, rectal bleeding, rectal pain, vomiting, others Genitourinary: denies: abnormal vagina bleeding, burning, dyspareunia, dysuria, flank pain, frequency, hematuria, incontinence, pain, , vagina discharge, urgency, others Neurological: denies: dizziness, fainting, headache, left sided numbness, left sided weakness, numbness, paresthesia, pre-existing deficit, right sided numbness, right sided weakness, seizure, speech problems, tingling, tremors, weakness, others Musculoskeletal: reports: muscle pain, muscle stiffness, neck pain; denies: back pain, gout, joint pain, joint swelling, others Integumetry: denies: bruises, change in color, change in hair/nails, dryness, laceration, lesions, lumps, rash, wounds, others Allergic/Immunocompromised: denies: Difficulty Healing, Frequent Infections, Hives, Itching, others Hematologic/Lymphatic: denies: anemia, blood clots, easy bleeding, easy bruising, swollen glands, others Endocrine: denies: excessive hunger, excessive sweating, excessive thirst, excessive urination, flushing, intolerance to cold, intolerance to heat, unexplained weight gain, unexplained weight loss, others Psychiatric: denies: anxiety, bipolar disorder, depression, hopeless, panic disorder, schizophrenia, sleepless, suicidal, others Physical Exam General Appearance: No Apparent Distress, Normal HEENT: Pharynx Normal, TMs Normal Neck: Limited Range of Motion, Tender Lateral Respiratory: Lungs Clear, No Respiratory Distress, Normal Breath Sounds Cardiovascular: No Murmur, Normal Peripheral Pulses, Regular Rate/Rhythm Breast Exam: Deferred Gastrointestinal: Non Tender, Soft Genitalia: Deferred Pelvic: Deferred Rectal: Deferred Extremities: Normal capillary refill, Normal range of motion Musculoskeletal : Apperance: Normal Neurologic: Alert, No Motor Deficits, Normal Affect, Normal Mood, No Sensory Deficits Cerebellar Function: Normal Reflexes: Normal Skin: Dry, Normal Color, Warm Lymphatic: No Adenopathy Was a procedure done? Was a procedure done?: No Back Pain Differential Dx Differential Diagnosis: Fracture, Musculoskeletal Pain, Strain X-Ray, Labs, Meds, VS Vital Signs Date Time Temp Pulse Resp B/P (MAP) Pulse Ox O2 Delivery O2 Flow Rate FiO2 03/20/25 18:25 98.2 98 18 152/86 98 98.2 X-Ray, Labs, Meds, VS Comment Patient given Toradol IM 60 mg reports improvement in pain. Requesting discharge at this time. Cervical spine x-ray shows no acute fractures, osseous lesions, or subluxations periods likely muscle strain. We will trial NSAID and muscle relaxer script to pharmacy advised take medication as prescribed side effects discussed. Advised to follow up with the PCP in 2-3 days as necessary consider physical therapy or further imaging if symptoms persist. ER return precautions were discussed. Time of 1ST Reevaluation: 19:15 Reevaluation 1ST: Unchanged Time of 2ND Reevaluation: 20:00 Reevaluation 2ND: Improved Patient Education/Counseling: Diagnosis, Treatment, Prognosis, Need For Follow Up Family Education/Counseling: No Family Present SEPSIS Sepsis Screen Date sepsis recognized/suspect: Mar 20, 2025 Time Sepsis recognized/suspect: 1826 Recent Procedure: No On Antibiotic Therapy: No Respiratory Rate >20: No Heart Rate >90: Yes Temp<36 C (96.8 F) or >38.3 C: No SBP <90 or MAP <65 mmHG: No New Acute Mental Status Change: No Is the patient on CPAP, BIPAP,: No Physician Orders Cervical Spine 3v (03/20/25 18:42) Ketorolac Injection (Toradol Injection) (03/20/25 20:00) Vital Signs Date Time Temp Pulse Resp B/P (MAP) Pulse Ox O2 Delivery O2 Flow Rate FiO2 03/20/25 18:25 98.2 98 18 152/86 98 98.2 Departure 1 Departure Time of Disposition: 20:01 Impression: Primary Impression: Neck muscle strain Qualified Codes: S16.1XXA - Strain of muscle, fascia and tendon at neck lev el, initial encounter Disposition: HOME / SELF CARE / HOMELESS Condition: Stable e-Prescriptions Methylprednisolone (Medrol Dosepak) 4 Mg Jhonathan 4 MG PO UD for 6 Days, #21 TAB UAD Prov: MARY BENNETT 03/20/25 Tizanidine Hydrochloride (Tizanidine Hcl) 4 Mg Tab 4 MG PO BID PRN for 5 Days, #10 TAB Prov: MARY BENNETT 03/20/25 Discharged With: Self Critical Care Note Critical Care Time?: No Stability Stability form required: MARY Kevin Mar 20, 2025 20:02
[2025-03-20] MEDS: KETOROLAC TROMETH 60MG/2ML VIAL IM ONE (20:04)
== END 2025-03-20 20:41 | disposition home or self-care (01) ==
LOC: ER 18:23
DX: S16.1XXA Strain of muscle, fascia and tendon at neck level, initial encounter (principal); I10 Essential (primary) hypertension; Z90.710 Acquired absence of both cervix and uterus; Z88.1 Allergy status to other antibiotic agents; Z79.899 Other long term (current) drug therapy; Z88.0 Allergy status to penicillin; X58.XXXA Exposure to other specified factors, initial encounter; Y93.89 Activity, other specified; Y92.89 Other specified places as the place of occurrence of the external cause; Y99.8 Other external cause status
CPT/HCPCS: 72040; 96372; 99283; J1885